=== PATIENT | male | born 1970 | race African-American/Black ===

== ENCOUNTER 2019-09-19 12:53 | Outpatient (CLI) | payer OTHER ==
--- NOTE | 2019-09-19 15:00 | MRI Report ---
Reason: INTERNAL DERANGEMENT OF RT KNEE Procedure Date: 09/19/2019 Accession Number: [id number] / [id number] Procedure: MRI - Knee RT W/O CPT Code: Final Report FULL RESULT: EXAM: RIGHT KNEE MRI WITHOUT CONTRAST EXAM DATE: 09/19/2019 02:02 PM. CLINICAL HISTORY: Medial knee pain for a couple of weeks. No specific injury. COMPARISON: None. TECHNIQUE: Multiplanar, multisequence T1-weighted and fluid-sensitive sequences of the knee without contrast. Other: None. FINDINGS: Ligaments: The anterior cruciate, posterior cruciate, and lateral collateral ligaments are normal. The medial collateral ligament is normal in course and signal though there is minimal overlying soft tissue edema. Given the lack of antecedent trauma, this is probably simply incidental medial knee soft tissue edema rather than evidence of low-grade MCL sprain. Patellofemoral compartment: Heterogeneous chondromalacia of the central and medial femoral trochlea extending slightly into the lateral trochlea, small portions of which are full-thickness. Retropatellar cartilage is preserved. No patellofemoral osteoarthritis. Patellofemoral alignment is anatomic. The distal quadriceps and patellar tendons are normal. The medial and lateral patellofemoral retinacula are normal. Medial compartment: Tiny contour defect along the inferior articular surface of the free edge of the medial meniscus at the posterior margin of the peripheral body best seen on series 501 image 8 and series 801 image 18 is probably a small tear, though if the patient has had prior knee surgery this could also reflect sequela of partial meniscectomy. The remainder of the medial meniscus is intact. Mild partial thickness chondromalacia of the central to posterior weightbearing surface of the medial femoral condyle. Medial tibial plateau cartilage is preserved. No medial compartment osteoarthritis. Lateral compartment: The lateral meniscus is normal. Lateral compartment cartilage is normal. No lateral compartment osteoarthritis. Soft tissues: There is a moderate knee effusion with moderate synovitis. IMPRESSION: 1. Small contour defect along the inferior articular surface of the free edge of the posterior margin of the peripheral body of the medial meniscus probably reflects a small tear though if the patient has had prior surgery this could reflect sequela of partial meniscectomy. Mild medial compartment chondromalacia without osteoarthritis. 2. Moderate femoral trochlear chondromalacia but intact retropatellar cartilage. No significant patellofemoral osteoarthritis. 3. Normal lateral compartment. 4. Moderate knee effusion with synovitis. 5. Mild edema superficial to the medial collateral ligament is probably simply medial knee soft tissue edema rather than evidence of low-grade MCL sprain. The MCL itself is normal in course and signal. RADIA
== END 2019-09-19 12:54 | disposition home or self-care (01) ==
LOC: DI 12:53
PROVIDERS: ATTEND Orthopaedic Surgery
DX: M94.261 Chondromalacia, right knee (principal); M25.411 Effusion, right shoulder; M65.9 Synovitis and tenosynovitis, unspecified; R60.0 Localized edema

== ENCOUNTER 2019-11-06 15:34 | Outpatient (CLI) | payer OTHER ==
--- NOTE | 2019-11-21 18:54 | SLEEP CARE CONSULTATION ---
Information from patient questionnaire entered by Court Bella. I have reviewed and concur with the information entered by Court Bella. This document represents the service I personally performed and the decisions made by me, Ivanna Myers MD, [facility]. History of Present Illness Service Date and Time: 11/06/2019 1534 Reason for Visit: New patient, Previously diagnosed sleep apnea (MILD - 9.8 in 2010), sleep apnea on CPAP therapy Chief Complaint: reports: Other (yearly check up for CPAP) Duration of Symptoms: 10-12 years Usual bedtime: it varies Time it takes to fall asleep: 20 minutes Snores at night: Yes Observed to quit breathing while asleep: Yes Sleeps alone due to snoring: No Number of times waking at night: not at all Reasons for waking at night: reports: Other (not sure, says snoring and gasping) Toss, Turn, or Twitch while sleeping: Yes Recalls having dreams: No Usually gets out of bed at: 4:45 am on weekdays, weekends - when i wake up Feels refreshed in the morning: Yes (if using CPAP) Morning headache: No Sleepy or fatigued during the day: Yes (when i don't use CPAP) Ever fallen asleep while driving: No Takes day naps: No Dreams during day naps: No Prior sleep studies: Yes Year and Where: 2010 - [place], [place] Additional HPI information: I had the pleasure of seeing Mr. Stuart today regarding obstructive sleep apne a-hypopnea. As you know, he is a 49 year old gentleman who was diagnosed with the sleep-disordered breathing in [place] about 10 years ago. The AHI was 9.3. He was prescribed a CPAP device set at 12 cmH2O. He uses every night and all night. The compliance data show usage in 159 out of the past 180 nights, averaging 5.7 hours a night. The residual AHI is 0.4 and average air leak is 7.4 L/minute. He wears a nasal mask. He gets his supplies from [place]. He finds the treatment beneficial. 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 Patient is and lives in [place]. Have you smoked in the past 12 months: No Alcohol use: Yes Alcohol amount and frequency: 2-3 drinks 2 times a week Caffeine use: Yes Caffeine amount and frequency: 1 drink daily Family History Family history of sleep disordered breathing: No Allergies and Home Medications Drug allergies reviewed: Yes Home medication list reviewed: Yes Review of Systems Cardiovascular: reports: high blood pressure Musculoskeletal: reports: joint pain (knee), back pain (stiffness) Physical Exam Height: 5 ft 9 in Weight: 285 lb Body Mass Index: 42.0 BMI Classification: Morbidly Obese Impression and Plan IMPRESSION: 1. Obstructive Sleep Apnea-Hypopnea Syndrome, mild, as previously diagnosed. The patient has had good treatment compliance. The current pressure setting appears effective and comfortable. The patient experiences improvement on the treatment. Narrow oropharynx and obesity are common predisposing factors for obstructive sleep apnea-hypopnea syndrome. Pathophysiology of sleep-disordered breathing was discussed. Because the CPAP is now older than the useful life of 5 years, I will order the patient a new one and make it an autoCPAP set between 8 and 12 cmH2O. Plan: 1. Prescription made for an autoCPAP, heated humidifier, and related supplies. 2. Try to lose weight. 3. Return for follow up after one month on the new machine. Visit Type: Telehealth Video Video Type: [employer] Patient Location: Home Location of Provider: Home Patient agrees and consents to this telehealth visit type: Yes Patient agrees to have their insurance billed: Yes Time Spent with Patient (minutes): 15 Provider Statement: I spent 100% of the Telehealth Video Call with the patient with greater than 50% spent counseling the patient and coordination of care.
== END 2019-11-06 15:35 | disposition home or self-care (01) ==
LOC: SC 15:34
PROVIDERS: ATTEND Internal Medicine Pulmonary Disease
DX: G47.33 Obstructive sleep apnea (adult) (pediatric) (principal); E66.01 Morbid (severe) obesity due to excess calories; Z68.41 Body mass index [BMI] 40.0-44.9, adult

== ENCOUNTER 2020-02-04 23:48 | Emergency (ER) | payer OTHER ==
--- NOTE | 2020-02-05 00:23 | ED Physician Documentation ---
PD HPI MHE - Stated complaint Stated Complaint: SI - Chief complaint Chief Complaint: MHE - History obtained from History obtained from: Patient - History of Present Illness Primary symptom: Suicidal ideation Timing - onset: How many months ago (8) Contributing factors: Family, Work. No: Substance abuse - ETOH, Substance abuse - drugs Similar symptoms before: Has not had sx before Recently seen: Not recently seen - Additional information Additional information: Previously healthy 49-year-old active [employer] male personnel has developed depression and suicidal ideation. He states that he has found himself making remarks jokingly that he should just kill himself or he should just shoot himself and he realizes that he should not be thinking this way. He states that he has never been treated for depression and he believes this is mostly related to stress at work and a physical separation from his family who is still in [place]. He states he has been here for about 1 year and he last saw his family in May. He is developed some anger and feels that he may lash out at someone. He states he does not have any specific feelings to injure anyone or himself. He does not have a firearm at home he is living in the [facility]. He is accompanied here today by his chief and there is someone who will be able to look after him in the [facility]. He feels that counseling might be helpful. He has never had counseling previously he has never been on medications for depression. He has a very minimal medical history mostly related to hypertension. Review of Systems Constitutional: denies: Fever, Chills, Myalgias, Fatigue Eyes: denies: Decreased vision Ears: denies: Ear pain Nose: denies: Rhinorrhea / runny nose, Congestion Throat: denies: Sore throat Cardiac: denies: Chest pain / pressure, Palpitations Respiratory: denies: Dyspnea, Cough GI: denies: Abdominal Pain, Nausea, Vomiting, Constipation, Diarrhea : denies: Dysuria, Frequency Skin: denies: Rash Musculoskeletal: denies: Neck pain, Back pain, Extremity pain Neurologic: denies: Generalized weakness, Focal weakness, Numbness, Headache, Head injury, LOC Psychiatric: reports: Depressed, Suicidal. denies: Homicidal, Hallucinations, Delusions, Anxiety, Insomnia PD ED PE NORMAL - Vitals Vital signs reviewed: Yes (Hypertensive) - General General: Alert and oriented X 3, No acute distress, Well developed/nourished - HEENT HEENT: Atraumatic, PERRL, EOMI - Neck Neck: Supple, no meningeal sign, No bony TTP - Cardiac Cardiac: RRR, No murmur - Respiratory Respiratory: No respiratory distress, Clear bilaterally - Abdomen Abdomen: Soft, Non tender - Back Back: No CVA TTP, No spinal TTP - Derm Derm: Normal color, Warm and dry, No rash - Extremities Extremities: No deformity, No edema - Neuro Neuro: Alert and oriented X 3, 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, No motor deficit, No sensory deficit, Normal speech Eye Opening: Spontaneous Motor: Obeys Commands Verbal: Oriented GCS Score: 15 - Psych Psych: Normal mood, Normal affect Results - Vitals Vitals: Vital Signs - 24 hr 02/05/20 02/05/20 02/05/20 00:00 01:43 06:26 Temperature 36.6 C Heart Rate 75 75 70 Respiratory 18 16 16 Rate Blood Pressure 175/91 H 175/91 H 150/88 H O2 Saturation 98 98 96 Oxygen O2 Source Room air - Labs Labs: Laboratory Tests 02/05/20 02/05/20 02/05/20 00:18 00:39 00:39 WBC 7.0 RBC 4.24 L Hgb 13.8 L Hct 41.6 L MCV 98.1 H MCH 32.5 H MCHC 33.2 RDW 13.2 Plt Count 310 MPV 12.0 H Neut # (Auto) 3.2 Lymph # (Auto) 2.8 [place] # (Auto) 0.7 Eos # (Auto) 0.2 Baso # (Auto) 0.0 Absolute Nucleated RBC 0.00 Nucleated RBC % 0.0 Sodium 140 Potassium 3.9 Chloride 100 L Carbon Dioxide 29 Anion Gap 11.0 BUN 18 Creatinine 1.1 Estimated GFR (MDRD) 87 L Glucose 95 Calcium 9.7 Total Bilirubin 0.6 AST 57 H ALT 64 H Alkaline Phosphatase 42 Total Protein 9.0 H Albumin 5.0 Globulin 4.0 Albumin/Globulin Ratio 1.3 Lipase 42 TSH Free T4 Urine Color YELLOW Urine Clarity CLEAR Urine pH 7.0 Ur Specific [place] 1.020 Urine Protein NEGATIVE Urine Glucose (UA) NEGATIVE Urine Ketones NEGATIVE Urine Occult Blood NEGATIVE Urine Nitrite NEGATIVE Urine Bilirubin NEGATIVE Urine Urobilinogen 4 H Ur Leukocyte Esterase NEGATIVE Ur Microscopic Review NOT INDICATED Urine Culture Comments NOT INDICATED Salicylates < 6.0 Urine Opiates Screen NEGATIVE Ur Oxycodone Screen NEGATIVE Urine Methadone Screen NEGATIVE Ur Propoxyphene Screen NEGATIVE Acetaminophen < 10 L Ur Barbiturates Screen NEGATIVE Ur Tricyclics Screen NEGATIVE Ur Phencyclidine Scrn NEGATIVE Ur Amphetamine Screen NEGATIVE U Methamphetamines Scrn NEGATIVE U Benzodiazepines Scrn NEGATIVE Urine Cocaine Screen NEGATIVE U Cannabinoids Screen NEGATIVE Ethyl Alcohol < 5.0 02/05/20 02/05/20 00:39 00:39 WBC RBC Hgb Hct MCV MCH MCHC RDW Plt Count MPV Neut # (Auto) Lymph # (Auto) [place] # (Auto) Eos # (Auto) Baso # (Auto) Absolute Nucleated RBC Nucleated RBC % Sodium Potassium Chloride Carbon Dioxide Anion Gap BUN Creatinine Estimated GFR (MDRD) Glucose Calcium Total Bilirubin AST ALT Alkaline Phosphatase Total Protein Albumin Globulin Albumin/Globulin Ratio Lipase TSH 6.64 H Free T4 1.02 Urine Color Urine Clarity Urine pH Ur Specific [place] Urine Protein Urine Glucose (UA) Urine Ketones Urine Occult Blood Urine Nitrite Urine Bilirubin Urine Urobilinogen Ur Leukocyte Esterase Ur Microscopic Review Urine Culture Comments Salicylates Urine Opiates Screen Ur Oxycodone Screen Urine Methadone Screen Ur Propoxyphene Screen Acetaminophen Ur Barbiturates Screen Ur Tricyclics Screen Ur Phencyclidine Scrn Ur Amphetamine Screen U Methamphetamines Scrn U Benzodiazepines Scrn Urine Cocaine Screen U Cannabinoids Screen Ethyl Alcohol PD MEDICAL DECISION MAKING - ED course Complexity details: reviewed results, re-evaluated patient, considered differential, d/w patient ED course: Previously well 49-year-old male has developed situational depression with suicidal ideation and he is now asking for help. His affect does not appear to demonstrate depression. His depression inventory of appetite and sleep are negative as well. The patient feels that counseling would be nice. He does not think he requires hospitalization. He does not have a specific plan. I have asked our friends on tele-psych to evaluate the patient with a recommendation. Dr. Das is consulted in the case and recommends out patient counselling, a safety plan and the patient did refuse medication. The social worker health services is consulted in the case and at shift change the patients ultimate disposition is assisted by Dr. Ordonez. Departure - Departure Clinical Impression: Suicidal ideation Depression Qualifiers: Depression Type: reactive depression Qualified Code(s): F32.9 - Major depressive disorder, single episode, unspecified Condition: Stable Instructions: ED Stress React, ED Depression Follow-Up: [facility] Daniel Penn [Provider Group] Comments: Follow up with the mental health team at [facility] as planned.
[2020-02-05 00:33] LABS: MUDS CUTOFF CONCENTRATIONS CUTOFF CONC BELOW:
[2020-02-05 00:34] LABS: BILIRUBIN,URINE NEGATIVE (NEGATIVE); GLUCOSE, URINE (UA) NEGATIVE (NEGATIVE); KETONES,URINE (UA) NEGATIVE (NEGATIVE); LEUKOCYTE ESTERASE, URINE NEGATIVE (NEGATIVE); NITRITE,URINE NEGATIVE (NEGATIVE); OCCULT BLOOD,URINE NEGATIVE (NEGATIVE); PROTEIN,URINE NEGATIVE (NEGATIVE); UROBILINOGEN,URINE 4 E.U./dL (NORMAL)
[2020-02-05 00:35] LABS: CLARITY,URINE CLEAR (CLEAR)
[2020-02-05 00:47] LABS: BASOPHILS % (AUTO) 0.6 %; HGB - HEMOGLOBIN 13.8 g/dL (14.0-18.0); LYMPHOCYTES # (AUTO) 2.8 10^3/uL (1.5-3.5); RED CELL DISTRIBUTION WIDTH 13.2 % (12.0-15.0)
[2020-02-05 00:50] LABS: EOSINOPHILS # (AUTO) 0.2 10^3/uL (0.0-0.7); EOSINOPHILS % (AUTO) 3.4 %; MEAN CORPUSCULAR HEMOGLOBIN 32.5 pg (27.0-31.0); MEAN CORPUSCULAR HGB CONC 33.2 g/dL (32.0-36.0); MEAN CORPUSCULAR VOLUME 98.1 fL (80.0-94.0); MONOCYTES # (AUTO) 0.7 10^3/uL (0.0-1.0); NEUTROPHILS # (AUTO) 3.2 10^3/uL (1.5-6.6); NEUTROPHILS % (AUTO) 45.6 %; PLT - PLATELET COUNT 310 10^3/uL (130-450); RED BLOOD COUNT 4.24 10^6/uL (4.70-6.10)
[2020-02-05 00:54] LABS: AMPHETAMINE SCREEN,URINE NEGATIVE (NEGATIVE); BENZODIAZEPINES SCREEN, URINE NEGATIVE (NEGATIVE); COCAINE SCREEN URINE NEGATIVE (NEGATIVE); METHADONE SCREEN, URINE NEGATIVE (NEGATIVE); METHAMPHETAMINES SCREEN, URINE NEGATIVE (NEGATIVE); OPIATE SCREEN, URINE NEGATIVE (NEGATIVE); OXYCODONE SCREEN, URINE NEGATIVE (NEGATIVE); PROPOXYPHENE SCREEN, URINE NEGATIVE (NEGATIVE); TRICYCLIC ANTIDEPRESSANT,URINE NEGATIVE (NEGATIVE)
[2020-02-05 01:02] LABS: ACETAMINOPHEN < 10 ug/mL (10-30); ALBUMIN/GLOBULIN RATIO 1.3 (1.0-2.2); ALKALINE PHOSPHATASE 42 IU/L (42-121); ALT ALANINE AMINOTRANSFERASE 64 IU/L (10-60); AST ASPARTATE AMINOTRANSFERASE 57 IU/L (10-42); BILIRUBIN,TOTAL 0.6 mg/dL (0.2-1.0); BUN - BLOOD UREA NITROGEN 18 mg/dL (6-20); CALCIUM 9.7 mg/dL (8.5-10.3); CARBON DIOXIDE - CO2 29 mmol/L (21-32); CHLORIDE 100 mmol/L (101-111); CREATININE 1.1 mg/dL (0.6-1.2); GLUCOSE 95 mg/dL (70-100); LIPASE 42 U/L (22-51); SALICYLATE < 6.0 mg/dL; SODIUM 140 mmol/L (135-145)
[2020-02-05 10:08] VITALS: BP 167/68
--- NOTE | 2020-03-05 14:32 | ED Physician Documentation ---
ED Addendum - Addendum Addendum: 03/05/20 14:30 Patient was seen in the morning by risk analyst, who agreed that outpatient therapy is appropriate. She contacted [facility] and the patient's command was coming to pick pt up and would take him to counselor directly and provide further follow up. Pt agreeable with this.
== END 2020-02-05 10:10 | disposition home or self-care (01) ==
LOC: ED 23:48
DX: R45.851 Suicidal ideations (principal); F32.9 Major depressive disorder, single episode, unspecified
CPT/HCPCS: 36415; 80320; 80329; 81003; 83690; 84439; 99283; 99284; G0426; 80053; 80306; 80307; 81001; 84443; 85025; 87086

== ENCOUNTER 2020-12-08 09:09 | Outpatient (CLI) | payer OTHER ==
--- NOTE | 2020-12-08 14:27 | XRAY Report ---
PROCEDURE: Knee 3 View LT INDICATIONS: L KNEE PX TECHNIQUE: 3 views of the left knee(s) were acquired. COMPARISON: None. FINDINGS: Bones: No fractures or dislocations. No suspicious bony lesions. Minimal medial compartment narrow ing. No periarticular osteophytes or erosions. Soft tissues: Mild joint effusion. No suspicious soft tissue calcifications. IMPRESSION: Minimal arthritic medial compartment narrowing. Reviewed by: Alea Li MD on 12/08/2020 2:26 PM PDT Approved by: Alea Li MD on 12/08/2020 2:26 PM PDT Station ID: [id number]
== END 2020-12-08 23:59 | disposition home or self-care (01) ==
LOC: DI.N 09:09
PROVIDERS: ATTEND Family Medicine
DX: M25.562 Pain in left knee (principal); M17.12 Unilateral primary osteoarthritis, left knee